=== PATIENT | female | born 1995 | race Caucasian/White ===

== ENCOUNTER 2019-05-10 21:43 | Emergency (ER) | payer OTHER ==
[2019-05-10] MEDS ORDERED: MAALOX/HYOSCYAMINE/LIDOCAINE 45 ML BTL ONE (22:48)
[2019-05-10] MEDS ORDERED: ONDANSETRON ODT 4 MG ONE (22:48)
[2019-05-11 14:32] LABS: ALANINE AMINOTRANSFERASE 23 U/L (12-78); ALBUMIN 4.4 g/dL (3.4-5.0); ALKALINE PHOSPHATASE 84 U/L (45-117); ANION GAP 7 mmol/L (5-15); BILIRUBIN,TOTAL 0.4 mg/dL (0.2-1.0); CALCIUM 8.6 mg/dL (8.5-10.1); CHLORIDE 108 mmol/L (98-107); CREATININE 0.88 mg/dL (0.55-1.02); TOTAL PROTEIN 7.8 g/dL (6.4-8.2)
[2019-05-11 14:56] LABS: MEAN CORPUSCULAR VOLUME 91.7 fL (80-100); RED BLOOD COUNT 5.45 x10^6/uL (3.82-5.3)
[2019-05-11 14:57] LABS: BASOPHILS % (AUTO) 1 % (0-1); EOSINOPHILS % (AUTO) 1 % (1-7); LYMPHOCYTES % (AUTO) 27 % (22-44); MEAN CORPUSCULAR HEMOGLOBIN 30.5 pg (27.0-34.8); MEAN CORPUSCULAR HGB CONC 33.2 g/dL (32.4-35.8); MEAN PLATELET VOLUME 6.7 fL (7.4-10.4); MONOCYTES % (AUTO) 4 % (2-9); NEUTROPHILS # (AUTO) 4.54 x10^3/uL (1.8-6.8); NEUTROPHILS % (AUTO) 67 % (42-75); PLATELET COUNT 396 x10^3/uL (130-400); RED CELL DISTRIBUTION WIDTH 12.1 % (9.6-15.2)
[2019-05-11 14:58] LABS: BASOPHILS # (AUTO) 0.04 x10^3/uL (0-0.1); EOSINOPHILS # (AUTO) 0.08 x10^3/uL (0-0.4); LYMPHOCYTES # (AUTO) 1.82 x10^3/uL (1-3.4); MD NO
[2019-05-11 17:08] LABS: MICROSCOPIC NOT IND
== END 2019-05-11 03:30 ==
LOC: ED 22:42
DX: K29.20 Alcoholic gastritis without bleeding (principal); F10.120 Alcohol abuse with intoxication, uncomplicated; Y90.0 Blood alcohol level of less than 20 mg/100 ml; Z87.891 Personal history of nicotine dependence
CPT/HCPCS: 36415; 80053; 80178; 80307; 81003; 83690; 84703; 85025; 87086; 99283

== ENCOUNTER 2019-06-03 10:00 | Emergency (ER) | payer OTHER ==
[~2019-06-03] VITALS: Ht 177.8 cm; Wt 68.0 kg
[2019-06-03 10:04] VITALS: BP 136/72
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
[2019-06-03 10:38] LABS: MICROSCOPIC NOT IND
[2019-06-03 10:43] LABS: CULTURE INDICATED? NO
[2019-06-03 10:44] LABS: BASOPHILS # (AUTO) 0.02 x10^3/uL (0-0.1); BASOPHILS % (AUTO) 0 % (0-1); EOSINOPHILS # (AUTO) 0.07 x10^3/uL (0-0.4); EOSINOPHILS % (AUTO) 1 % (1-7); LYMPHOCYTES # (AUTO) 1.14 x10^3/uL (1-3.4); LYMPHOCYTES % (AUTO) 13 % (22-44); MD NO; MEAN CORPUSCULAR HEMOGLOBIN 30.5 pg (27.0-34.8); MEAN CORPUSCULAR HGB CONC 33.6 g/dL (32.4-35.8); MEAN CORPUSCULAR VOLUME 90.8 fL (80-100); MEAN PLATELET VOLUME 6.3 fL (7.4-10.4); MONOCYTES # (AUTO) 0.33 x10^3/uL (0.2-0.8); MONOCYTES % (AUTO) 4 % (2-9); NEUTROPHILS # (AUTO) 7.55 x10^3/uL (1.8-6.8); NEUTROPHILS % (AUTO) 83 % (42-75); PLATELET COUNT 361 x10^3/uL (130-400); RED BLOOD COUNT 5.56 x10^6/uL (3.82-5.3); RED CELL DISTRIBUTION WIDTH 12.4 % (9.6-15.2)
[2019-06-03 10:50] LABS: AMPHETAMINE SCREEN, URINE Negative (Negative); BARBITURATE SCREEN, URINE Negative (Negative); BENZODIAZEPINE SCREEN, URINE Negative (Negative); CANNABINOID SCREEN, URINE Negative (Negative); COCAINE SCREEN, URINE Negative (Negative); METHADONE SCREEN, URINE Negative (Negative); OPIATE SCREEN, URINE Negative (Negative)
[2019-06-03 10:58] LABS: ALANINE AMINOTRANSFERASE 33 U/L (12-78); ALBUMIN 4.3 g/dL (3.4-5.0); ANION GAP 7 mmol/L (5-15); CALCIUM 8.6 mg/dL (8.5-10.1); CHLORIDE 109 mmol/L (98-107)
[2019-06-03 10:59] LABS: SALICYLATE LEVEL < 1.7 mg/dL (2.8-20.0)
[2019-06-03 11:03] LABS: ALKALINE PHOSPHATASE 97 U/L (45-117); BILIRUBIN,TOTAL 0.7 mg/dL (0.2-1.0); TOTAL PROTEIN 7.7 g/dL (6.4-8.2)
--- NOTE | 2019-06-03 11:15 | NUR ---
pt resting in secured room with eyes closed. sitter at doorway for continuous moniotring. warm blanket provided for comfort. no other needs expressed at this time. lunch tray ordered.
--- NOTE | 2019-06-03 12:20 | NUR ---
PT RESTING IN ROOM, EATING LUNCH TRAY. SITTER AT DOORWAY. ROOM SECURED. PT UP SELF WTIH STEADY GAIT WITH SITTER TO RR X2. NO OTHER NEEDS EXPRESSED AT THIS TIME. WILL REBREATHYLYZE AFTER FINISHED EATING.
--- NOTE | 2019-06-03 12:46 | NUR ---
pt now cooperative wit staff. pt rebreathylyzed at 0.161. pt encouraged to eat and drink more of lunch tray. pt states she needs to leave and scrap picker her dog from a boarding facility. sitter at doorway. room secured.
--- NOTE | 2019-06-03 13:24 | NUR ---
pt resting in secured room. sitter at doorway. pt continues to drink water and eat snacks. no needs expressed.
--- NOTE | 2019-06-03 14:20 | NUR ---
pt resting in secured room with sitter at doorway. breathalyzer now 0.088. no needs expressed. wctm.
--- NOTE | 2019-06-03 15:32 | NUR ---
pt resting in secured room with sitter at doorway. breathalyzer now 0.040. no needs expressed. wctm.
--- NOTE | 2019-06-03 16:33 | NUR ---
pt resting in secured room. sitter at doorway. pt anxious to speak with clinical psychiatrist. pt educated that clinical psychiatrist will be here to talk with her as soon as he is available. no other needs expressed. awaiting psych consult.
--- NOTE | 2019-06-03 17:21 | NUR ---
REFERRED TO [facility]
--- NOTE | 2019-06-03 17:37 | NUR ---
TASK RN: dinner tray ordered for pt.
--- NOTE | 2019-06-03 17:43 | NUR ---
pt resting in secured room with sitter at doorway. no needs expressed.
--- NOTE | 2019-06-03 18:47 | NUR ---
pt resting in secured room. no needs expressed. dinner tray provided. sitter remains at doorway.
--- NOTE | 2019-06-03 19:39 | NUR ---
PT RESTING IN SECURED ROOM. NO NEEDS EPXRESSED. SITTER AT DOORWAY.
--- NOTE | 2019-06-03 19:51 | NUR ---
TASK RN: PACKET FAXED TO [facility], [facility], [facility], AND [facility]. PER ELIJAH STRICKLAND [address] INSURANCE REQUIRES PRE-AUTH. OKAY TO FORWARD PACKET TO OTHER FACILITIES
[2019-06-03] MEDS ORDERED: LORazepam 1MG TABLET ONE (20:18)
--- NOTE | 2019-06-03 20:21 | NUR ---
pt resting in secured room. sitter at doorway for continuous monitoring. pt requesting medication for anxiety. Dr. Smith notified and orders received. pt medicated per aug. no other requests at this time.
[2019-06-03] MEDS ORDERED: LORazepam 1MG TABLET PO ONE (20:30)
--- NOTE | 2019-06-03 20:54 | NUR ---
updates given to Boyd at [facility].
--- NOTE | 2019-06-03 21:00 | NUR ---
rea Nix at [facility], pt is accepted under Dr. Trevino.
--- NOTE | 2019-06-03 21:53 | NUR ---
increased anxiety when discussing poc. pt able to calm self and return to bed calmly. pt now resting in secured room with sitter at doorway. no needs expressed. transport to [facility] estimated for 2214. pt belongings removed from locker and placed with sitter. pt ready for transport.
== END 2019-06-03 22:45 ==
LOC: ED 12:42
DX: F33.9 Major depressive disorder, recurrent, unspecified (principal); F10.120 Alcohol abuse with intoxication, uncomplicated; F17.200 Nicotine dependence, unspecified, uncomplicated
CPT/HCPCS: 36415; 80053; 80307; 81003; 84703; 85025; 99285